=== PATIENT | female | born 2000 | race Two or more races ===

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

== ENCOUNTER 2020-03-11 01:37 | Emergency (ER) | payer OTHER ==
[~2020-03-11] VITALS: Ht 157.5 cm; Wt 46.4 kg
[2020-03-11] MEDS ORDERED: ONDANSETRON ODT 4 MG TAB.RAPDIS. PO ONE (02:00)
[2020-03-11] MEDS ORDERED: DEXAMETHASONE 4 MG TABLET PO ONE (02:00)
[2020-03-11 02:29] LABS: BASO % 1 % (0-3); EOS # 0.7 x10^3/uL (0.0-0.7); EOS % 14 % (0-3); HEMATOCRIT 39.3 % (36.0-47.0); HEMOGLOBIN 13.9 g/dL (12.0-15.5); LYMPH # 2.5 x10^3/uL (1.0-4.8); LYMPH % 48 % (24-48); MEAN CORPUSCULAR HEMOGLOBIN 31 pg (25-35); MEAN CORPUSCULAR HGB CONC 35 g/dL (31-37); MEAN CORPUSCULAR VOLUME 89 fL (79-100); MONO # 0.4 x10^3/uL (0.0-1.1); MONO % 8 % (0-9); NEUT # 1.6 x10^3/uL (1.8-7.7); NEUT % 30 % (31-73); PLATELET COUNT 240 x10^3/uL (140-400); RED BLOOD COUNT 4.42 x10^6/uL (3.50-5.40); RED CELL DISTRIBUTION WIDTH 12.4 % (11.5-14.5); WHITE BLOOD COUNT 5.3 x10^3/uL (4.0-11.0)
[2020-03-11] MEDS ORDERED: IV NORMAL SALINE 1000ML BAG 1,000 ML IV ONE (02:30)
[2020-03-11] MEDS ORDERED: KETOROLAC 15 MG/ML VIAL. IVP ONE (02:30)
[2020-03-11] MEDS ORDERED: FAMOTIDINE 20 MG/2 ML VIAL IVP ONE (02:30)
[2020-03-11] MEDS ORDERED: DEXAMETHASONE SOD PHOS 4 MG/ML VIAL IVP ONE (02:30)
[2020-03-11 02:31] LABS: BILIRUBIN,URINE NEGATIVE (NEG); CLARITY,URINE CLEAR; COLOR,URINE YELLOW; NITRITE,URINE NEGATIVE (NEG); PH,URINE 6.5 (<5.0-8.0); PROTEIN,URINE NEGATIVE (NEG-TRACE)
[2020-03-11 02:42] LABS: BACTERIA,URINE MANY /HPF (0-FEW); CALCIUM 9.1 mg/dL (8.5-10.1); CREATININE 0.5 mg/dL (0.6-1.0); GFR 158.9; POTASSIUM 3.4 mmol/L (3.5-5.1)
[2020-03-11 02:47] LABS: ALBUMIN 4.5 g/dL (3.4-5.0); ALBUMIN/GLOBULIN RATIO 1.4 (1.0-1.7); TOTAL BILIRUBIN 1.6 mg/dL (0.2-1.0); TOTAL PROTEIN 7.8 g/dL (6.4-8.2)
--- NOTE | 2020-03-11 03:01 | RAD ---
AP chest x-ray HISTORY: Cough. FINDINGS: Thoracolumbar scoliosis. Heart size normal. Nasal silhouette is normal. No pneumothorax, pulmonary opacities or pleural effusions. IMPRESSION: No acute process. Electronically signed by: Andres Trujillo MD (03/11/2020 2:59 AM) [facility]
[2020-03-11] MEDS ORDERED: FAMO-63 PO (03:07)
[2020-03-11] MEDS ORDERED: ONDA4TAB12 PO (03:07)
--- NOTE | 2020-03-11 03:09 | PHYS DOC ---
Past Medical History Past Medical History: Asthma, Depression, Hyperthyroid, Other Additional Past Medical Histor: ADHD, pt is a poor historian Past Surgical History: Other Additional Past Surgical Histo: Lung Smoking Status: Never Smoker Alcohol Use: None Drug Use: None General Adult EDM: Chief Complaint: MULTIPLE COMPLAINTS HPI: HPI: Patient is a 19 year old [f__sex] who presents with [] Review of Systems: Review of Systems: Constitutional: Denies fever or chills. [] Eyes: Denies change in visual acuity. [] HENT: Denies nasal congestion or sore throat. [] Respiratory: Denies cough or shortness of breath. [] Cardiovascular: Denies chest pain or edema. [] GI: Denies abdominal pain, nausea, vomiting, bloody stools or diarrhea. [] : Denies dysuria. [] Musculoskeletal: Denies back pain or joint pain. [] Integument: Denies rash. [] Neurologic: Denies headache, focal weakness or sensory changes. [] Endocrine: Denies polyuria or polydipsia. [] Lymphatic: Denies swollen glands. [] Psychiatric: Denies depression or anxiety. [] Heart Score: Risk Factors: Risk Factors: DM, Current or recent (<one month) smoker, HTN, HLP, family history of CAD, obesity. Risk Scores: Score 0 - 3: 2.5% MACE over next 6 weeks - Discharge Home Score 4 - 6: 20.3% MACE over next 6 weeks - Admit for Clinical Observation Score 7 - 10: 72.7% MACE over next 6 weeks - Early Invasive Strategies Current Medications: Current Medications Medications (Trade) Dose Ordered Sig/[facility] Start Time Stop Time Status Last Admin Dose Admin Dexamethasone (Decadron) 10 mg 1X ONCE 03/11/20 02:00 03/11/20 02:14 DC Dexamethasone Sodium Phosphate (Decadron) 10 mg 1X ONCE 03/11/20 02:30 03/11/20 02:31 DC 03/11/20 02:48 10 MG Famotidine (Pepcid Vial) 20 mg 1X ONCE 03/11/20 02:30 03/11/20 02:31 DC 03/11/20 02:49 20 MG Ketorolac Tromethamine (Toradol 15mg Vial) 15 mg 1X ONCE 03/11/20 02:30 10/10/20 02:31 DC 03/11/20 02:30 15 MG Ondansetron HCl (Zofran Odt) 4 mg 1X ONCE 03/11/20 02:00 03/11/20 02:01 DC 03/11/20 02:13 4 MG Sodium Chloride 1,000 ml @ 1,000 mls/hr 1X ONCE 03/11/20 02:30 03/11/20 03:29 03/11/20 02:49 1,000 MLS/HR Allergies: Allergies: Allergies Coded Allergies Type Severity Reaction Last Updated Verified No Known Medication Allergies Allergy Unknown 02/16/14 No Physical Exam: PE: Constitutional: Well developed, well nourished, no acute distress, non-toxic appearance. [] HENT: Normocephalic, atraumatic, bilateral external ears normal, oropharynx moist, no oral exudates, nose normal. [] Eyes: PERRLA, EOMI, conjunctiva normal, no discharge. [] Neck: Normal range of motion, no tenderness, supple, no stridor. [] Cardiovascular:Heart rate regular rhythm, no murmur [] Lungs & Thorax: Bilateral breath sounds clear to auscultation [] Abdomen: Bowel sounds normal, soft, no tenderness, no masses, no pulsatile masses. [] Skin: Warm, dry, no erythema, no rash. [] Back: No tenderness, no CVA tenderness. [] Extremities: No tenderness, no cyanosis, no clubbing, ROM intact, no edema. [] Neurologic: Alert and oriented X 3, normal motor function, normal sensory function, no focal deficits noted. [] Psychologic: Affect normal, judgement normal, mood normal. [] Current Patient Data: Labs: Laboratory Tests Test 03/11/20 02:07 03/11/20 02:24 White Blood Count 5.3 x10^3/uL (4.0-11.0) Red Blood Count 4.42 x10^6/uL (3.50-5.40) Hemoglobin 13.9 g/dL (12.0-15.5) Hematocrit 39.3 % (36.0-47.0) Mean Corpuscular Volume 89 fL (79-100) Mean Corpuscular Hemoglobin 31 pg (25-35) Mean Corpuscular Hemoglobin Concent 35 g/dL (31-37) Red Cell Distribution Width 12.4 % (11.5-14.5) Platelet Count 240 x10^3/uL (140-400) Neutrophils (%) (Auto) 30 % (31-73) L Lymphocytes (%) (Auto) 48 % (24-48) Monocytes (%) (Auto) 8 % (0-9) Eosinophils (%) (Auto) 14 % (0-3) H Basophils (%) (Auto) 1 % (0-3) Neutrophils # (Auto) 1.6 x10^3/uL (1.8-7.7) L Lymphocytes # (Auto) 2.5 x10^3/uL (1.0-4.8) Monocytes # (Auto) 0.4 x10^3/uL (0.0-1.1) Eosinophils # (Auto) 0.7 x10^3/uL (0.0-0.7) Basophils # (Auto) 0.0 x10^3/uL (0.0-0.2) Urine Collection Type Unknown Urine Color Yellow Urine Clarity Clear Urine pH 6.5 (<5.0-8.0) Urine Specific [place] 1.015 (1.000-1.030) Urine Protein Negative mg/dL (NEG-TRACE) Urine Glucose (UA) Negative mg/dL (NEG) Urine Ketones (Stick) >=80 mg/dL (NEG) Urine Blood Negative (NEG) Urine Nitrite Negative (NEG) Urine Bilirubin Negative (NEG) Urine Urobilinogen Dipstick 1.0 mg/dL (0.2 mg/dL) Urine Leukocyte Esterase Negative (NEG) Urine RBC 1-2 /HPF (0-2) Urine WBC 5-10 /HPF (0-4) Urine Squamous Epithelial Cells Mod /LPF Urine Bacteria Many /HPF (0-FEW) Urine Mucus Marked /LPF Sodium Level 138 mmol/L (136-145) Potassium Level 3.4 mmol/L (3.5-5.1) L Chloride Level 101 mmol/L (98-107) Carbon Dioxide Level 27 mmol/L (21-32) Anion Gap 10 (6-14) Blood Urea Nitrogen 5 mg/dL (7-20) L Creatinine 0.5 mg/dL (0.6-1.0) L Estimated GFR (Cockcroft-Gault) 158.9 BUN/Creatinine Ratio 10 (6-20) Glucose Level 103 mg/dL (70-99) H Calcium Level 9.1 mg/dL (8.5-10.1) Magnesium Level 2.0 mg/dL (1.8-2.4) Total Bilirubin 1.6 mg/dL (0.2-1.0) H Aspartate Amino Transferase (AST) 17 U/L (15-37) Alanine Aminotransferase (ALT) 14 U/L (14-59) Alkaline Phosphatase 93 U/L (46-116) Total Protein 7.8 g/dL (6.4-8.2) Albumin 4.5 g/dL (3.4-5.0) Albumin/Globulin Ratio 1.4 (1.0-1.7) Lipase 51 U/L (73-393) L POC Urine HCG, Qualitative Hcg negative (Negative) Laboratory Tests 03/11/20 02:07 Laboratory Tests 03/11/20 02:07 Vital Signs: Vital Signs Date Time Temp Pulse Resp B/P (MAP) Pulse Ox O2 Delivery O2 Flow Rate FiO2 03/11/20 02:48 76 18 124/81 (95) 98 Room Air 03/11/20 01:52 97.3 97.3 EKG: EKG: [] Radiology/Procedures: Radiology/Procedures: [] Course & Med Decision Making: Course & Med Decision Making Pertinent Labs and Imaging studies reviewed. (See chart for details) [] Dragon Disclaimer: Dragon Disclaimer: This electronic medical record was generated, in whole or in part, using a voice recognition dictation system. Departure Departure Impression: Primary Impression: Nausea & vomiting Qualified Codes: R11.2 - Nausea with vomiting, unspecified Additional Impression: Suspected 2019 novel coronavirus infection Disposition: 01 DC HOME SELF CARE/HOMELESS Condition: STABLE Referrals: UNKNOWN PCP NAME (PCP) Patient Instructions: Dehydration, Adult, [id number], Nausea and Vomiting, [id number], Viral Syndrome Additional Instructions: You have been tested for or diagnosed with COVID-19. It is an infection caused by a new type of coronavirus. COVID-19 will cause cold-like or mild flu symptoms in most. It can cause more severe symptoms like problems breathing in some. There is no treatment for COVID-19. The body will clear the infection over time. Self-care will help to ease discomfort. Steps to Take: Self-Care Rest as needed. Healthy habits may help you feel better. Steps include: Choose healthy foods including fruits and vegetables. Drink water throughout the day. Get plenty of sleep each night. If you smoke, try to quit. It may ease breathing. Avoid alcohol. Keep Others Healthy The virus can spread to others. Droplets are released every time you sneeze or cough. The droplets can get into the mouth, nose, or eyes of people near you and lead to infection. To lower the chances of spreading COVID-19 to others: Stay at home until your doctor has said it is safe to leave. If you tested posi tive this will mean staying isolated until both of the following are true: At least 7 days have passed since the start of illness. You are free of fever for at least 72 hours without the use of medicine. During this time: - Avoid public areas, events, or transportation. Do not return to work or school until your doctor has said it is safe to do so. - Call ahead if you need to go to a medical center. Let them know you may have COVID-19. It will help them guide you where to go. They may also ask you to wear a facemask when you come to the office. - If you call for emergency medical services, let them know you may have COVID- 19. While at home: - Try to avoid close contact with others. Stay about 6 feet away. - If possible, spend most of your time in a separate room from others. - Use a face mask if you will be in close contact with others such as sharing a room or vehicle. - Have someone wipe down common surfaces in the home. Use household securities settlement processor every day on areas like doorknobs, counters, or sinks. - Cough or sneeze into a tissue. Throw the tissue away right after use. If a tissue is not available, cough or sneeze into your elbow. - Wash your hands often. Wash them after sneezing or coughing. Use soap and water and wash for at least 20 seconds. Alcohol based hand drycleaner can be used if soap and water is not available. - Do not prepare food for others. Avoid sharing personal items like forks, spoons, or toothbrushes. - Avoid close contact with pets while you are sick. There is no evidence of the virus passing to pets. This is a safety step until more is known about this virus. Isolation can be frustrating. Social interaction can help. Keep in touch with friends and family through phone and tech options. You can still interact with others in you r home, just keep a safe distance of about 6 feet. Follow-up: Your doctors office will check in with you to see if there are any changes in your health. You may be asked to keep track of symptoms to share with them. They will also let you know when you are clear to be in public again. Problems to Look Out For: Contact your doctor if your recovery is not going as you expect. Get emergency care if you have problems such as: - Trouble breathing - Nonstop chest pain or pressure - Changes in awareness, confusion, or problems waking - Lips or face have bluish color - Worsening of symptoms If you think you have an emergency, call for emergency medical services right away. As taken from [facility] Famotidine (PEPCID) 20 Mg Tablet 20 MG PO BID, #10 TAB Prov: SOPHIA ISIDRO DO 03/11/20 Ondansetron (ONDANSETRON ODT) 4 Mg Tab.rapdis 1 TAB PO PRN Q6-8HRS PRN for NAUSEA, #16 TAB Prov: SOPHIA ISIDRO DO 03/11/20 SOPHIA ISIDRO DO Mar 11, 2020 03:09
[2020-03-11 03:18] VITALS: BP 105/62
--- NOTE | 2020-03-14 11:00 | NUR ---
IP: Informed pt of negative COVID test. Pt verbalized understanding.
== END 2020-03-11 03:28 | disposition home or self-care (01) ==
LOC: ER 01:37
DX: R11.2 Nausea with vomiting, unspecified (principal); Z20.828 Contact with and (suspected) exposure to other viral communicable diseases; R05 Cough; R53.83 Other fatigue; J45.909 Unspecified asthma, uncomplicated; F32.9 Major depressive disorder, single episode, unspecified; E05.90 Thyrotoxicosis, unspecified without thyrotoxic crisis or storm; Z98.890 Other specified postprocedural states
CPT/HCPCS: 36415; 71045; 80053; 81001; 81025; 83690; 83735; 85025; 87086; 96361; 96374; 96375; 99284; J1100; J1885; J3490; J7030; U0003

== ENCOUNTER 2021-02-20 02:05 | Emergency (ER) | payer OTHER ==
[~2021-02-20] VITALS: Ht 157.5 cm; Wt 47.0 kg
[~2021-02-20 02:05] MED LIST changes: +FAMO-63 PO; +ONDA4TAB12 PO
[2021-02-20 02:42] LABS: BASO % 1 % (0-3); EOS # 0.4 x10^3/uL (0.0-0.7); EOS % 6 % (0-3); HEMATOCRIT 38.3 % (36.0-47.0); HEMOGLOBIN 13.5 g/dL (12.0-15.5); LYMPH # 1.8 x10^3/uL (1.0-4.8); LYMPH % 30 % (24-48); MEAN CORPUSCULAR HEMOGLOBIN 32 pg (25-35); MEAN CORPUSCULAR HGB CONC 35 g/dL (31-37); MEAN CORPUSCULAR VOLUME 90 fL (79-100); MONO # 0.4 x10^3/uL (0.0-1.1); MONO % 6 % (0-9); NEUT # 3.4 x10^3/uL (1.8-7.7); NEUT % 57 % (31-73); PLATELET COUNT 233 x10^3/uL (140-400); RED BLOOD COUNT 4.27 x10^6/uL (3.50-5.40); RED CELL DISTRIBUTION WIDTH 13.5 % (11.5-14.5); WHITE BLOOD COUNT 6.1 x10^3/uL (4.0-11.0)
[2021-02-20 02:53] LABS: CREATININE 0.7 mg/dL (0.6-1.0); GFR 106.7
[2021-02-20 02:58] LABS: ALBUMIN 4.6 g/dL (3.4-5.0); ALBUMIN/GLOBULIN RATIO 1.5 (1.0-1.7); TOTAL BILIRUBIN 0.5 mg/dL (0.2-1.0); TOTAL PROTEIN 7.7 g/dL (6.4-8.2)
[2021-02-20 02:59] LABS: ACETAMIN < 2 mcg/ml (10-30); ETHANOL < 10 mg/dL (0-10)
--- NOTE | 2021-02-20 03:14 | PHYS DOC ---
Past Medical History Past Medical History: Asthma, Depression, Hyperthyroid, Other Additional Past Medical Histor: ADHD, THYROID (GENNA CHAPMAN DO) Past Surgical History: Other Additional Past Surgical Histo: Lung (GENNA CHAPMAN DO) Smoking Status: Never Smoker Alcohol Use: None Drug Use: Marijuana (GENNA CHAPMAN DO) General Adult EDM: Chief Complaint: SUICDAL IDEATION HPI: HPI: Patient is a 20 year old female past medical history asthma depression anxiety hypothyroid presents for evaluation after an attempted suicide. Prior to arrival patient attempted to hang herself. Patient states she used an HDMI cord and wrapped it around her neck and tried to hang herself. Patient's sibling found patient hanging. He states patient was not fully unconscious. On exam patient is alert and oriented x4. She has complained of a headache she denies any neck pain or shortness of breath. (GENNA CHAPMAN DO) Review of Systems: Review of Systems: Constitutional: Denies fever or chills. [] Eyes: Denies change in visual acuity. [] HENT: Denies nasal congestion or sore throat. [] Respiratory: Denies cough or shortness of breath. [] Cardiovascular: Denies chest pain or edema. [] GI: Denies abdominal pain, nausea, vomiting, bloody stools or diarrhea. [] : Denies dysuria. [] Musculoskeletal: Denies back pain or joint pain. [] Integument: Denies rash. [] Neurologic: Positive headache, denies focal weakness or sensory changes. [] Endocrine: Denies polyuria or polydipsia. [] Lymphatic: Denies swollen glands. [] Psychiatric: Positive depression positive suicidal ideation (GENNA CHAPMAN DO) Heart Score: Risk Factors: Risk Factors: DM, Current or recent (<one month) smoker, HTN, HLP, family history of CAD, obesity. Risk Scores: Score 0 - 3: 2.5% MACE over next 6 weeks - Discharge Home Score 4 - 6: 20.3% MACE over next 6 weeks - Admit for Clinical Observation Score 7 - 10: 72.7% MACE over next 6 weeks - Early Invasive Strategies (GENNA CHAPMAN DO) C/O Chest Pain: N/A (KASIA MATA MD) Allergies: Allergies: Allergies Coded Allergies Type Severity Reaction Last Updated Verified No Known Medication Allergies Allergy Unknown 02/16/14 No (ADELAGENNA Belinda FALK) Physical Exam: PE: General: alert, no acute distress. Skin: warm, dry and intact, no erythema, no rash. HENT: bilateral external ears normal, oropharynx moist, nose normal. Head:: Normocephalic, atraumatic. Neck: Trachea midline. Eyes: EOMI, Normal conjunctiva, No drainage CARDIOVASCULAR: Regular rate and rhythm RESPIRATORY: No respiratory distress Back: Full range of motion. MUSCULOSKELETAL: Full range of motion of bilateral upper and lower extremities. GASTROINTESTINAL: Abdomen soft without rebound or guarding. NEUROLOGICAL: Alert and noted to person, place and time. No neurological deficits observed Psychiatric: Cooperative. Normal judgment (GENNA CHAPMAN DO) Current Patient Data: Labs: Laboratory Tests Test 02/20/21 02:35 White Blood Count 6.1 x10^3/uL (4.0-11.0) Red Blood Count 4.27 x10^6/uL (3.50-5.40) Hemoglobin 13.5 g/dL (12.0-15.5) Hematocrit 38.3 % (36.0-47.0) Mean Corpuscular Volume 90 fL (79-100) Mean Corpuscular Hemoglobin 32 pg (25-35) Mean Corpuscular Hemoglobin Concent 35 g/dL (31-37) Red Cell Distribution Width 13.5 % (11.5-14.5) Platelet Count 233 x10^3/uL (140-400) Neutrophils (%) (Auto) 57 % (31-73) Lymphocytes (%) (Auto) 30 % (24-48) Monocytes (%) (Auto) 6 % (0-9) Eosinophils (%) (Auto) 6 % (0-3) H Basophils (%) (Auto) 1 % (0-3) Neutrophils # (Auto) 3.4 x10^3/uL (1.8-7.7) Lymphocytes # (Auto) 1.8 x10^3/uL (1.0-4.8) Monocytes # (Auto) 0.4 x10^3/uL (0.0-1.1) Eosinophils # (Auto) 0.4 x10^3/uL (0.0-0.7) Basophils # (Auto) 0.0 x10^3/uL (0.0-0.2) Sodium Level 140 mmol/L (136-145) Potassium Level 4.0 mmol/L (3.5-5.1) Chloride Level 103 mmol/L (98-107) Carbon Dioxide Level 33 mmol/L (21-32) H Anion Gap 4 (6-14) L Blood Urea Nitrogen 6 mg/dL (7-20) L Creatinine 0.7 mg/dL (0.6-1.0) Estimated GFR (Cockcroft-Gault) 106.7 BUN/Creatinine Ratio 9 (6-20) Glucose Level 94 mg/dL (70-99) Calcium Level 9.0 mg/dL (8.5-10.1) Total Bilirubin 0.5 mg/dL (0.2-1.0) Aspartate Amino Transferase (AST) 12 U/L (15-37) L Alanine Aminotransferase (ALT) 12 U/L (14-59) L Alkaline Phosphatase 107 U/L (46-116) Total Protein 7.7 g/dL (6.4-8.2) Albumin 4.6 g/dL (3.4-5.0) Albumin/Globulin Ratio 1.5 (1.0-1.7) Acetaminophen Level < 2 mcg/ml (10-30) L Acetaminophen Last Dose Date Unk Acetaminophen Last Dose Time Unk Ethyl Alcohol Level < 10 mg/dL (0-10) Laboratory Tests 02/20/21 02:35 Laboratory Tests 02/20/21 02:35 Vital Signs: Vital Signs Date Time Temp Pulse Resp B/P (MAP) Pulse Ox O2 Delivery O2 Flow Rate FiO2 02/20/21 03:00 68 16 106/68 (81) 98 Room Air 02/20/21 02:20 98.0 98.0 (GENNA CHAPMAN DO) EKG: EKG: [] (GENNA CHAPMAN DO) Radiology/Procedures: Radiology/Procedures: [] Impression: Wet read cervical spine no acute fractures or dislocation (GENNA CHAPMAN DO) Course & Med Decision Making: Course & Med Decision Making Pertinent Labs and Imaging studies reviewed. (See chart for details) [] Patient evaluated by psychiatric urban forester. Plan is for psychiatric admission. Accepting facility pending at shift change 0600hrs. (GENNA CHAPMAN DO) Course & Med Decision Making Received patient in signout. Has remained stable. Medical work-up only significant for nitrite positive UA concerning UTI. Given Macrobid here. Will provide written prescription for 7 days of Macrobid 100 mg twice daily. Patient has been accepted by [facility] for inpatient psychiatric care. (KASIA MATA MD) Christo Disclaimer: Dragdm Disclaimer: This electronic medical record was generated, in whole or in part, using a voice recognition dictation system. (GENNA CHAPMAN DO) Departure Departure Impression: Primary Impression: Suicidal ideation Additional Impressions: UTI (urinary tract infection) Attempted suicide [facility] Condition: STABLE Referrals: UNKNOWN PCP NAME (PCP) Scripts Nitrofurantoin Monohyd/M-Cryst (MACROBID 100 MG CAPSULE) 100 Mg Capsule 1 CAP PO BID for 7 Days, #14 CAP 0 Refills Prov: KASIA MATA MD 02/20/21 GENNA CHAPMAN DO Feb 20, 2021 03:14 KASIA MATA MD Feb 20, 2021 12:46
[2021-02-20 03:31] LABS: BILIRUBIN,URINE NEGATIVE (NEG); CLARITY,URINE CLOUDY; COLOR,URINE YELLOW; NITRITE,URINE POSITIVE (NEG); PROTEIN,URINE NEGATIVE (NEG-TRACE)
[2021-02-20 03:37] LABS: AMPHETAMINE/METHAMPHETAMINE NEG (NEG); BARBITURATES NEG (NEG); BENZODIAZEPINES NEG (NEG); CANNABINOIDS NEG (NEG); COCAINE NEG (NEG); METHADONE NEG (NEG); OPIATES NEG (NEG); PHENCYCLIDINE NEG (NEG)
[2021-02-20 03:40] LABS: BACTERIA,URINE MANY /HPF (0-FEW); RBC,URINE 0 /HPF (0-2)
[2021-02-20] MEDS: ACETAMINOPHEN 325 MG TABLET. PO ONE (03:41)
[2021-02-20] MEDS: NITROFURANTOIN MONOHYD/M-CRYST 100 MG CAPSULE. PO SCH (09:21)
[2021-02-20] MEDS ORDERED: NITR100C62 PO ×2 (12:44→12:49)
--- NOTE | 2021-02-20 13:59 | RAD ---
EXAM: XR CERVICAL SPINE 2-3V. HISTORY: Hanging, neck pain. COMPARISON: None. FINDINGS: Alignment is maintained. No fractures are identified. There is no prevertebral soft tissue swelling. Intervertebral disc heights are maintained. IMPRESSION: 1. No fracture or malalignment. Electronically signed by: Shelia Arias MD (02/20/2021 6:09 AM) [facility]
[2021-02-20 14:37] VITALS: BP 114/80
== END 2021-02-20 14:41 ==
LOC: ER 02:05
DX: R45.851 Suicidal ideations (principal); Z20.2 Contact with and (suspected) exposure to infections with a predominantly sexual mode of transmission; N39.0 Urinary tract infection, site not specified; J45.909 Unspecified asthma, uncomplicated; E03.9 Hypothyroidism, unspecified
CPT/HCPCS: 36415; 72040; 80053; 80307; 80329; 81001; 81025; 85025; 87077; 87086; 87426; 99285; G0480; U0003; U0005